=== PATIENT | female | born 1995 | race Caucasian/White ===

== ENCOUNTER 2016-05-05 21:18 | Emergency (ER) | payer MEDICAID ==
[~2016-05-05] VITALS: Ht 152.4 cm; Wt 69.1 kg
[2016-05-06 00:28] LABS: PREGNANCY RESULT, SERUM NEGATIVE (NEGATIVE)
[2016-05-06 02:11] VITALS: BP 107/63
== END 2016-05-06 02:23 | disposition home or self-care (01) ==
LOC: EMS 21:20
DX: A64 Unspecified sexually transmitted disease (principal); F41.9 Anxiety disorder, unspecified
CPT/HCPCS: 99284

== ENCOUNTER 2016-07-06 17:07 | Emergency (ER) | payer MEDICAID ==
[~2016-07-06] VITALS: Ht 157.5 cm; Wt 68.0 kg
[2016-07-06] MEDS ORDERED: ACETAMINOPHEN 325 MG TABLET PO ONE (17:45)
[2016-07-06 19:29] VITALS: BP 135/70
== END 2016-07-06 20:02 | disposition home or self-care (01) ==
LOC: EMS 17:11
DX: J02.9 Acute pharyngitis, unspecified (principal)
CPT/HCPCS: 99283